=== PATIENT | male | born 1945 | race Caucasian/White ===

== ENCOUNTER 2022-03-04 07:13 | Day surgery (SDC) | payer OTHER ==
[~2022-03-04] VITALS: Ht 167.6 cm; Wt 96.2 kg
[2022-03-04] MEDS ORDERED: BENZOCAINE 20% GEL 32 GM BOTTLE MM ONE (08:00)
[2022-03-04] MEDS ORDERED: NS 250 ML BAG IV ONE (08:00)
[2022-03-04] MEDS ORDERED: ARTICAINE HCL/EPINEPHRINE 4%/1:200,000 BIT 1.7 ML CARTRIDGE IJ ONE (08:00)
[2022-03-04] MEDS ORDERED: NS IRRIG SOLN 1000 ML IR ONE (08:00)
[2022-03-04 13:05] VITALS: BP_SYST 153
== END 2022-03-04 12:25 | disposition home or self-care (01) ==
LOC: SDS 07:13 → SMU 07:14 → SDS 12:25
PROVIDERS: ATTEND Dentist General Practice
DX: M27.2 Inflammatory conditions of jaws (principal); M06.9 Rheumatoid arthritis, unspecified; M89.8X0 Other specified disorders of bone, multiple sites; E11.630 Type 2 diabetes mellitus with periodontal disease; M26.603 Bilateral temporomandibular joint disorder, unspecified; K05.10 Chronic gingivitis, plaque induced; K12.2 Cellulitis and abscess of mouth; K04.2 Pulp degeneration; M79.10 Myalgia, unspecified site; Z79.899 Other long term (current) drug therapy; Z20.822 Contact with and (suspected) exposure to COVID-19
CPT/HCPCS: 21215; 21248; 36415; 41826; 70140; 82962; 87426; C1713 ×2; J7050